=== PATIENT | male | born 1965 | race Two or more races ===

== ENCOUNTER 2023-10-17 15:34 | Emergency (ER) | payer BC ==
[~2023-10-17] VITALS: Ht 185.4 cm; Wt 95.3 kg
[2023-10-17] MEDS ORDERED: NEURONTIN300 MG (15:48)
[2023-10-17] MEDS ORDERED: CRESTOR10 MG (15:48)
[2023-10-17] MEDS ORDERED: TOPROL XL50 M1 (15:48)
[2023-10-17] MEDS ORDERED: ZESTRIL5 MG (15:49)
[2023-10-17] MEDS ORDERED: ELIQUIS2.5 MG (15:49)
[2023-10-17] MEDS ORDERED: KETOROLAC TROMETHAMINE 15 MG VIAL IM STA (17:16)
== END 2023-10-17 19:33 | disposition home or self-care (01) ==
LOC: ER 15:35
DX: M79.602 Pain in left arm (principal); W19.XXXA Unspecified fall, initial encounter; Y93.9 Activity, unspecified; Y92.9 Unspecified place or not applicable; Y99.9 Unspecified external cause status